=== PATIENT | male | born 1955 | race African-American/Black ===

== ENCOUNTER 2022-01-26 12:01 | Emergency (ER) | payer MEDICARE, MEDICAID ==
[~2022-01-26] VITALS: Ht 170.2 cm; Wt 77.0 kg
[2022-01-26] MEDS ORDERED: FAMOTIDINE 20MG/2ML VIAL IV STA (12:13)
[2022-01-26] MEDS ORDERED: ONDANSETRON HCL 4MG/2ML INJ IV STA (12:13)
[2022-01-26] MEDS ORDERED: SODIUM CHLORIDE 0.9% 1,000 ML IV ONE (12:15)
[2022-01-26 13:01] LABS: CLARITY URINE CLEAR (CLEAR); COLOR URINE YELLOW (YELLOW); KETONES URINE 1+ (NEGATIVE); LEUKOCYTE ESTERASE URINE NEGATIVE (NEGATIVE); NITRITE URINE NEGATIVE (NEGATIVE); OCCULT BLOOD URINE NEGATIVE (NEGATIVE); PROTEIN URINE TRACE (NEGATIVE); SPECIFIC GRAVITY URINE 1.018 (1.005-1.030); UROBILINOGEN URINE 0.2 E.U./dL (0.2-1.0)
[2022-01-26 13:01] LABS: BASOPHILS % 0.8 % (0.0-2.0); EOSINOPHILS % 0.6 % (0.0-5.0); HEMATOCRIT. 40.7 % (42.0-52.0); HEMOGLOBIN. 13.6 g/dL (14.0-18.0); LYMPHOCYTES % 17.2 % (20.0-50.0); MEAN CORPUSCULAR HEMOGLOBIN 31.1 pg (28.0-32.0); MEAN CORPUSCULAR VOLUME 92.8 fL (80.0-94.0); MEAN PLATELET VOLUME 8.2 fl (7.4-10.4); MONOCYTES % 6.3 % (2.0-8.0); NEUTROPHILS % 75.1 % (40.0-76.0); PLATELET 218 x1000/uL (130-400); RED BLOOD CELL COUNT 4.38 mill/uL (4.7-6.1); RED CELL DISTRIBUTION WIDTH 14.9 % (11.6-14.6)
[2022-01-26 13:09] LABS: CHLORIDE 105 mEq/L (98-107)
[2022-01-26 13:21] LABS: ETHANOL BLOOD < 10 mg/dL
[2022-01-26 13:30] LABS: *AMPHETAMINES SCREEN URINE NEGATIVE (NEGATIVE); *BARBITURATES SCREEN URINE NEGATIVE (NEGATIVE); *BENZODIAZEPINES SCREEN URINE NEGATIVE (NEGATIVE); *COCAINE SCREEN URINE NEGATIVE (NEGATIVE); CANNABINOID URINE SCREEN PRESUMTIVE POSITIVE (NEGATIVE); METHADONE URINE SCREEN NEGATIVE (NEGATIVE); OPIATES URINE SCREEN NEGATIVE (NEGATIVE); PHENCYCLIDINE URINE SCREEN NEGATIVE (NEGATIVE)
[2022-01-26] MEDS ORDERED: FAMO-135 MT (15:53)
[2022-01-26] MEDS ORDERED: ONDA4TAB11 PO (15:53)
[2022-01-26 17:08] VITALS: BP 150/93
== END 2022-01-26 17:13 | disposition home or self-care (01) ==
LOC: ER 12:37
DX: R10.13 Epigastric pain (principal); R11.2 Nausea with vomiting, unspecified; I10 Essential (primary) hypertension; E78.00 Pure hypercholesterolemia, unspecified; R73.9 Hyperglycemia, unspecified; F12.10 Cannabis abuse, uncomplicated
CPT/HCPCS: 36415; 74176; 80053; 80305; 80320; 81003; 83690; 83880; 84484; 85025; 93005; 96361; 96374; 96375; 99285; J2405; J3490; J7030; G0480